=== PATIENT | male | born 1990 | race Hispanic/Latino ===

== ENCOUNTER 2018-07-07 18:51 | Emergency (ER) | payer SELFPAY ==
[2018-07-07 20:02] LABS: Absolute Lymphocytes (CBC) 2.1 K/uL (0.7-4.9); Absolute Monocytes 1.1 K/uL (0.1-1.3); Absolute Neutrophil 3.1 K/uL (1.8-8.0); Basophils % 0.7 % (0-1.3); Hematocrit 45.7 % (39.6-49.0); Lymphocytes % 29.1 % (15.3-44.8); MCH 30.1 pg (27.0-35.0); MCV 86.9 fL (80-100); MPV 8.5 fL (7.6-11.3); Monocytes % 14.6 % (3.3-12.3); RBC Red Blood Cell Count 5.26 M/uL (4.33-5.43)
[2018-07-07 20:17] LABS: ALT/SGPT 28 U/L (12-78); AST/SGOT 20 U/L (15-37); Albumin 3.9 g/dL (3.4-5.0); Alkaline Phosphatase 86 U/L (45-117); BUN Blood Urea Nitrogen 12 mg/dL (7-18); Bicarbonate 28 mmol/L (21-32); Bilirubin Direct < 0.1 mg/dL (0-0.2); Bilirubin Total 0.3 mg/dL (0.2-1.0); Glucose Level 94 mg/dL (74-106); Lipase 119 U/L (73-393); Potassium 3.6 mmol/L (3.5-5.1); Protein, Total 8.1 g/dL (6.4-8.2); Sodium Level 137 mmol/L (136-145)
[2018-07-07] MEDS ORDERED: NA CHLORIDE 0.9% 1,000 ML ONE (20:17)
[2018-07-07] MEDS ORDERED: DIPHENOX/ATROP SULF 1 TAB PO ONE (20:17)
[2018-07-07] MEDS ORDERED: ONDANSETRON 4 MG/2 ML VIAL ONE (20:17)
--- NOTE | 2018-07-07 21:56 | ER ---
Nurse's Notes [facility] Name: Janet Clark Age: 27 yrs Sex: Male : 1990 Arrival Date: 07/07/2018 Time: 18:54 Bed 8 Private MD: Diagnosis: Gastroenteritis Presentation: 07/07 19:10 Presenting complaint: Patient states: Reports upper abdominal pain and cramping with aj diarrhea for 4 days after eating "pork that had been left outside for a while.". Transition of care: patient was not received from another setting of care. Onset of symptoms was July 03, 2018. Risk Assessment: Do you want to hurt yourself or someone else? Patient reports no desire to harm self or others. Initial Sepsis Screen: Does the patient meet any 2 criteria? No. Patient's initial sepsis screen is negative. Does the patient have a suspected source of infection? No. Patient's initial sepsis screen is negative. Care prior to arrival: None. 19:10 Method Of Arrival: Ambulatory aj 19:10 Acuity: CRYSTAL 3 aj Triage Assessment: 19:11 General: Appears in no apparent distress. comfortable, Behavior is calm, cooperative, aj appropriate for age. Pain: Complains of pain in right upper quadrant and left upper quadrant. Neuro: Level of Consciousness is awake, alert, obeys commands, Oriented to person, place, time, situation, Appropriate for age. Respiratory: Airway is patent Respiratory effort is even, unlabored, Respiratory pattern is regular, symmetrical. GI: Abdomen is flat, non-distended, Reports lower abdominal pain, cramping, diarrhea. Derm: Skin is intact, is healthy with good turgor, Skin is pink, warm \\T\\ dry. normal. Historical: - Allergies: 19:11 No Known Allergies; aj - Home Meds: 19:11 None [Active]; aj - PMHx: 19:11 None; aj - PSHx: 19:11 None; aj - Immunization history:: Adult Immunizations up to date. - Social history:: Smoking status: Patient/guardian denies using tobacco. - Ebola Screening: : Patient negative for fever greater than or equal to 101.5 degrees Fahrenheit, and additional compatible Ebola Virus Disease symptoms Patient denies exposure to infectious person Patient denies travel to an Ebola-affected area in the 21 days before illness onset No symptoms or risks identified at this time. Screenin:27 Abuse screen: Denies threats or abuse. Nutritional screening: No deficits noted. tl2 Tuberculosis screening: No symptoms or risk factors identified. Fall Risk None identified. Assessment: 19:27 General: Appears in no apparent distress. uncomfortable, Behavior is calm, cooperative, tl2 appropriate for age. Pain: Complains of pain in left upper quadrant and right upper quadrant Pain does not radiate. Neuro: Level of Consciousness is awake, alert, obeys commands, Oriented to person, place, time, situation. Cardiovascular: Denies chest pain. Respiratory: Airway is patent Respiratory effort is even, unlabored, Respiratory pattern is regular, symmetrical. GI: Bowel sounds present X 4 quads. Abd is soft Abd is non tender Reports cramping, diarrhea. : No signs and/or symptoms were reported regarding the genitourinary system. Derm: Skin is pink, warm \\T\\ dry. 21:20 Reassessment: Patient appears in no apparent distress at this time. Patient and/or tl2 family updated on plan of care and expected duration. Pain level reassessed. Patient is alert, oriented x 3, equal unlabored respirations, skin warm/dry/pink. Pt states pain has improved slightly. Fluids have infused, awaiting lab results. 22:10 Reassessment: Patient appears in no apparent distress at this time. Patient and/or tl2 family updated on plan of care and expected duration. Pain level reassessed. Patient is alert, oriented x 3, equal unlabored respirations, skin warm/dry/pink. Pt verbalized understanding of discharge instructions, need for follow up and prescription usage Patient states feeling better. Vital Signs: 19:11 BP 139 / 91; Pulse 83; Resp 19; Temp 97.7; Pulse Ox 99% on R/A; Weight 63.5 kg; Height aj 5 ft. 5 in. (165.10 cm); 20:43 BP 135 / 90; Pulse 80; Resp 18; Pulse Ox 99% on R/A; tl2 21:20 BP 126 / 84; Pulse 79; Resp 18; Pulse Ox 99% on R/A; tl2 22:04 BP 124 / 84; Pulse 88; Resp 18; Pulse Ox 99% on R/A; tl2 19:11 Body Mass Index 23.30 (63.50 kg, 165.10 cm) ED Course: 18:54 Patient arrived in ED. rg4 19:11 Triage completed. 19:11 Arm band placed on left wrist. Patient placed in waiting room, Patient notified of wait aj time. 19:16 Ciro Leonard MD is Attending Physician. tw4 19:18 Danette Kurtz, RN is Primary Nurse. tl2 19:27 Patient has correct armband on for positive identification. Bed in low position. Call tl2 light in reach. Side rails up X 1. Adult w/ patient. 19:27 Inserted saline lock: 20 gauge in right antecubital area, using aseptic technique. tl2 Blood collected. 22:04 No provider procedures requiring assistance completed. IV discontinued, intact, tl2 bleeding controlled, No redness/swelling at site. Pressure dressing applied. Administered Medications: 20:16 Drug: NS 0.9% 1000 ml Route: IV; Rate: 1 bolus; Site: right antecubital; tl2 22:08 Follow up: IV Status: Completed infusion; IV Intake: 1000ml tl2 20:16 Drug: Zofran 4 mg Route: PO; tl2 22:09 Follow up: Response: No adverse reaction; Nausea is decreased tl2 20:32 Drug: LoMOTIL 1 tabs Route: PO; tl2 22:08 Follow up: Response: No adverse reaction tl2 Intake: 22:08 IV: 1000ml; Total: 1000ml. tl2 Outcome: 21:56 Discharge ordered by . tw4 22:04 Discharged to home ambulatory, with family. tl2 22:04 Condition: stable 22:04 Discharge instructions given to patient, Instructed on discharge instructions, follow up and referral plans. medication usage, Demonstrated understanding of instructions, follow-up care, medications, Prescriptions given X 2. 22:11 Patient left the ED. tl2 Signatures: Ne Patel RN RN aj Knox, Taylor, RN RN 2 Kathy Chaparro 4 Ciro Leonard MD MD 4
--- NOTE | 2018-07-07 21:57 | EDPHYS ---
Physician Documentation [facility] Name: Janet Clark Age: 27 yrs Sex: Male : 1990 Arrival Date: 07/07/2018 Time: 18:54 Bed 8 Private MD: ED Physician Ciro Leonard HPI: 07/08 02:41 This 27 yrs old Male presents to ER via Ambulatory with complaints of tw4 Abdominal Pain, Diarrhea. 02:41 The patient presents to the emergency department with diarrhea. Onset: The tw4 symptoms/episode began/occurred today. Possible causes: unknown. The symptoms are aggravated by nothing. The symptoms are alleviated by nothing. Associated signs and symptoms: The patient has no apparent associated signs or symptoms. Severity of symptoms: At their worst the symptoms were moderate in the emergency department the symptoms are unchanged. The patient has not experienced similar symptoms in the past. The patient has not recently seen a physician. Historical: - Allergies: 07/07 19:11 No Known Allergies; aj - Home Meds: 19:11 None [Active]; aj - PMHx: 19:11 None; aj - PSHx: 19:11 None; aj - Immunization history:: Adult Immunizations up to date. - Social history:: Smoking status: Patient/guardian denies using tobacco. - Ebola Screening: : Patient negative for fever greater than or equal to 101.5 degrees Fahrenheit, and additional compatible Ebola Virus Disease symptoms Patient denies exposure to infectious person Patient denies travel to an Ebola-affected area in the 21 days before illness onset No symptoms or risks identified at this time. ROS: 07/08 02:41 Constitutional: Negative for fever, chills, and weight loss, Eyes: Negative for injury, tw4 pain, redness, and discharge, Cardiovascular: Negative for chest pain, palpitations, and edema, Respiratory: Negative for shortness of breath, cough, wheezing, and pleuritic chest pain. Back: Negative for injury and pain, MS/Extremity: Negative for injury and deformity, Skin: Negative for injury, rash, and discoloration, Neuro: Negative for headache, weakness, numbness, tingling, and seizure. Abdomen/GI: Positive for abdominal pain, nausea, diarrhea, Negative for abdominal cramps, abdominal distension, anorexia, black/tarry stool. Exam: 02:41 Constitutional: This is a well developed, well nourished patient who is awake, alert, tw4 and in no acute distress. Head/Face: Normocephalic, atraumatic. Chest/axilla: Normal chest wall appearance and motion. Nontender with no deformity. No lesions are appreciated. Cardiovascular: Regular rate and rhythm with a normal S1 and S2. No gallops, murmurs, or rubs. Normal PMI, no JVD. No pulse deficits. Respiratory: Lungs have equal breath sounds bilaterally, clear to auscultation and percussion. No rales, rhonchi or wheezes noted. No increased work of breathing, no retractions or nasal flaring. Abdomen/GI: Soft, non-tender, with normal bowel sounds. No distension or tympany. No guarding or rebound. No evidence of tenderness throughout. Back: No spinal tenderness. No costovertebral tenderness. Full range of motion. MS/ Extremity: Pulses equal, no cyanosis. Neurovascular intact. Full, normal range of motion. Neuro: Awake and alert, GCS 15, oriented to person, place, time, and situation. Cranial nerves II-XII grossly intact. Motor strength 5/5 in all extremities. Sensory grossly intact. Cerebellar exam normal. Normal gait. Vital Signs: 07/07 19:11 BP 139 / 91; Pulse 83; Resp 19; Temp 97.7; Pulse Ox 99% on R/A; Weight 63.5 kg; Height aj 5 ft. 5 in. (165.10 cm); 20:43 BP 135 / 90; Pulse 80; Resp 18; Pulse Ox 99% on R/A; tl2 21:20 BP 126 / 84; Pulse 79; Resp 18; Pulse Ox 99% on R/A; tl2 22:04 BP 124 / 84; Pulse 88; Resp 18; Pulse Ox 99% on R/A; tl2 19:11 Body Mass Index 23.30 (63.50 kg, 165.10 cm) MDM: 19:16 Patient medically screened. tw4 07/08 02:41 Differential diagnosis: Nonspecific abd pain, gastritis. Data reviewed: vital signs, tw4 nurses notes. Data interpreted: Pulse oximetry: Interpretation:. Counseling: I had a detailed discussion with the patient and/or guardian regarding: the historical points, exam findings, and any diagnostic results supporting the discharge/admit diagnosis. Medication response: Zofran relieved the patient's nausea. Response to treatment: and as a result, I will discharge patient. Special discussion: Based on the patient's Hx, exam, and Dx evaluation, there is no indication for emergent surgery or inpatient Tx. It is understood by the patient/guardian that if the Sx's persist or worsen they need to return immediately for re-evaluation. I discussed with the patient/guardian in detail that at this point there is no indication for admission to the hospital. It is understood, however, that if the symptoms persist or worsen the patient needs to return immediately for re-evaluation. 07/07 19:43 Order name: Basic Metabolic Panel tl2 07/07 19:43 Order name: CBC with Diff tl2 07/07 19:43 Order name: Creatinine for Radiology tl2 07/07 19:43 Order name: Hepatic Function tl2 07/07 19:43 Order name: Lipase tl2 07/07 19:43 Order name: Basic Metabolic Panel; Complete Time: 21:53 EDMS 07/07 21:54 Interpretation: Normal except: GFR 89. tw4 07/07 19:43 Order name: IV Saline Lock; Complete Time: 19:43 tl2 07/07 19:43 Order name: CBC with Automated Diff; Complete Time: 21:53 EDMS 07/07 21:54 Interpretation: Normal except: RDW 11.9; EOSINOPHIL % 13.0; MN% 14.6. tw4 07/07 19:43 Order name: Creatinine (Radiology Only); Complete Time: 21:53 EDMS 07/07 21:54 Interpretation: Within normal limits: CRE 1.00; GFR 89. tw4 07/07 19:44 Order name: Liver (Hepatic) Function; Complete Time: 21:53 EDMS 07/07 19:44 Order name: Lipase; Complete Time: 21:53 EDMS 07/07 21:54 Interpretation: Within normal limits: LIP 119. tw4 07/07 19:43 Order name: Labs collected and sent; Complete Time: 19:43 tl2 Administered Medications: 07/07 20:16 Drug: NS 0.9% 1000 ml Route: IV; Rate: 1 bolus; Site: right antecubital; tl2 22:08 Follow up: IV Status: Completed infusion; IV Intake: 1000ml tl2 20:16 Drug: Zofran 4 mg Route: PO; tl2 22:09 Follow up: Response: No adverse reaction; Nausea is decreased tl2 20:32 Drug: LoMOTIL 1 tabs Route: PO; tl2 22:08 Follow up: Response: No adverse reaction tl2 Disposition: 07/07/18 21:56 Discharged to Home. Impression: Gastroenteritis. - Condition is Stable. - Discharge Instructions: Viral Gastroenteritis, Adult, [id number]. - Prescriptions for Zofran 4 mg Oral Tablet - take 1 tablet by ORAL route every 12 hours As needed; 6 tablet. Lomotil 2.5- 0.025 mg Oral Tablet - take 2 tablet by ORAL route once daily As needed; 20 tablet. - Medication Reconciliation Form, Thank You Letter, Antibiotic Education, Prescription Opioid Use form. - Follow up: Private Physician; When: Today; Reason: Further diagnostic work-up, Recheck today's complaints, Continuance of care. - Problem is new. - Symptoms have improved. Signatures: Dispatcher [employer] EDNe Watkins RN RN aj Knox, Taylor, RN RN tl2 Ciro Leonard MD MD tw4 Corrections: (The following items were deleted from the chart) 22:11 21:56 07/07/2018 21:56 Discharged to Home. Impression: Gastroenteritis. Condition is tl2 Stable. Forms are Medication Reconciliation Form, Thank You Letter, Antibiotic Education, Prescription Opioid Use. Follow up: Private Physician; When: Today; Reason: Further diagnostic work-up, Recheck today's complaints, Continuance of care. Problem is new. Symptoms have improved. tw4
== END 2018-07-07 22:11 | disposition home or self-care (01) ==
LOC: ER 18:51
DX: K52.9 Noninfective gastroenteritis and colitis, unspecified (principal)
CPT/HCPCS: 36415; 80048; 80076; 83690; 85025; 96360; 96361; 99284; J2405; J7030